=== PATIENT | male | born 1960 | race Caucasian/White ===

== ENCOUNTER 2018-03-17 01:29 | Emergency (ER) | payer BC ==
[~2018-03-17] VITALS: Ht 175.3 cm; Wt 86.2 kg
[2018-03-17 01:38] VITALS: BP_SYST 161
[2018-03-17] MEDS ORDERED: NACL 0.9% 1,000 ML IV ONE (01:57)
[2018-03-17] MEDS ORDERED: ONDANSETRON HCL 4 MG/2 ML VIAL IVP ONE (02:00)
[2018-03-17] MEDS ORDERED: MORPHINE 2 MG/ML INJ. SYRINGE IM ONE (02:00)
[2018-03-17 02:33] LABS: BASOPHILS % (AUTO) 0.8 % (0.0-2.0); EOSINOPHILS # (AUTO) 0.2 K/uL (0.0-0.4); EOSINOPHILS % (AUTO) 3.4 % (0.0-4.0); HEMATOCRIT 43.7 % (36-54); HEMOGLOBIN 14.7 g/dL (14.0-18.0); LYMPHOCYTES # (AUTO) 1.8 K/uL (1.0-5.5); MEAN CORPUSCULAR HEMOGLOBIN 31 pg (27-31); MEAN CORPUSCULAR HGB CONC 34 % (32-36); MEAN CORPUSCULAR VOLUME 91 fL (79.0-98.0); MONOCYTES # (AUTO) 0.5 K/uL (0.0-1.0); NEUTROPHILS # (AUTO) 3.7 K/uL (1.8-7.7); NEUTROPHILS % (AUTO) 58.8 % (40.0-70.0); PLATELET COUNT (AUTO) 219 K/uL (130-430); RED BLOOD CELL COUNT(AUTO) 4.81 MIL/uL (4.2-6.2); RED CELL DISTRIBUTION WIDTH 12.2 % (9.0-15.0); WHITE BLOOD COUNT (AUTO) 6.2 K/uL (4.8-10.8)
[2018-03-17 02:41] LABS: CALCIUM 8.9 mg/dL (8.4-11.0); CREATININE 1.06 mg/dL (0.55-1.30); POTASSIUM 3.5 mmol/L (3.5-5.1)
[2018-03-17 02:46] LABS: PROTHROMBIN TIME 9.9 SECS (9.5-12.5)
[2018-03-17 02:47] LABS: ALBUMIN 4.1 g/dL (3.4-4.8); TOTAL BILIRUBIN 0.9 mg/dL (0.0-1.0)
[2018-03-17 03:48] LABS: BILIRUBIN,URINE NEGATIVE (NEGATIVE); BLOOD, URINE NEGATIVE (NEGATIVE); CLARITY/URINE CLEAR (CLEAR); COLOR,URINE YELLOW (YELLOW); GLUCOSE,URINE NEGATIVE (NEGATIVE); KETONES,URINE NEGATIVE (NEGATIVE); LEUKOCYTE ESTERASE ,URINE TRACE (NEGATIVE); NITRITE, URINE NEGATIVE (NEGATIVE); PROTEIN URINE NEGATIVE (NEGATIVE); UROBILINOGEN,URINE 0.2 (0.2-1.0)
[2018-03-17 03:57] LABS: BACTERIA,URINE FEW /HPF (None Seen); RBC,URINE 0-3 /HPF (0-3)
[2018-03-17 04:55] VITALS: BP_SYST 145
== END 2018-03-17 04:55 | disposition home or self-care (01) ==
LOC: SED 01:29
DX: K80.20 Calculus of gallbladder without cholecystitis without obstruction (principal); K21.9 Gastro-esophageal reflux disease without esophagitis; Z88.0 Allergy status to penicillin
CPT/HCPCS: 36415; 71045; 74176; 76700; 80053; 81000; 82550; 83690; 83880; 84484; 85025; 85610; 87086; 93005; 96374; 96375; 99285; J2270; J2405; J7030

== ENCOUNTER 2020-11-22 22:58 | Inpatient (IN) | payer BC, SELFPAY ==
[~2020-11-22] VITALS: Ht 175.3 cm; Wt 89.5 kg
[2020-11-22 23:00] VITALS: BP_SYST 156
--- NOTE | 2020-11-22 23:00 | NUR ---
PT TO BED 7 FOR EVALUATION
--- NOTE | 2020-11-22 23:05 | NUR ---
PT COMPLAINING OF WORSENING RIGHT-SIDED ABDOMINAL PAIN TODAY. PT REPORTS THAT HE HAD GALLSTONES ONE WEEK AGO AND FEELS LIKE HE FLARED UP AGAIN TODAY. PT REPORTS CURRENT PAIN LEVEL OF 10/10.
[2020-11-22] MEDS ORDERED: NACL 0.9% 1,000 ML IV ONE (23:15)
--- NOTE | 2020-11-22 23:20 | NUR ---
DR. ISLAS AT BEDSIDE TO ASSESS.
[2020-11-22] MEDS ORDERED: MORPHINE 4 MG INJ. 4 MG/ML VIAL IVP ONE (23:30)
--- NOTE | 2020-11-22 23:50 | NUR ---
IV ESTABLISHED 20G IV HL INTO LEFT FA AND URINE SPECIMEN SENT TO LAB.
--- NOTE | 2020-11-22 23:50 | NUR ---
BLOOD DRAWN PER LAB AND SENT FOR ANALYSIS.
[2020-11-22 23:58] LABS: BASOPHILS # (AUTO) 0.1 K/uL (0.0-0.2); BASOPHILS % (AUTO) 0.5 % (0.0-2.0); EOSINOPHILS # (AUTO) 0.1 K/uL (0.0-0.4); EOSINOPHILS % (AUTO) 1.4 % (0.0-4.0); HEMATOCRIT 46.4 % (36-54); HEMOGLOBIN 15.8 g/dL (14.0-18.0); LYMPHOCYTES # (AUTO) 1.1 K/uL (1.0-5.5); LYMPHOCYTES % (AUTO) 11.1 % (20.5-51.5); MEAN CORPUSCULAR HEMOGLOBIN 31 pg (27-31); MEAN CORPUSCULAR HGB CONC 34 % (32-36); MEAN CORPUSCULAR VOLUME 89 fL (79.0-98.0); MONOCYTES # (AUTO) 0.4 K/uL (0.0-1.0); MONOCYTES % (AUTO) 4.2 % (1.7-9.3); NEUTROPHILS # (AUTO) 8.5 K/uL (1.8-7.7); NEUTROPHILS % (AUTO) 82.8 % (40.0-70.0); PLATELET COUNT (AUTO) 217 K/uL (130-430); RED BLOOD CELL COUNT(AUTO) 5.19 MIL/uL (4.2-6.2); WHITE BLOOD COUNT (AUTO) 10.2 K/uL (4.8-10.8)
--- NOTE | 2020-11-23 | NUR ---
Received report from Vanesa SANTIAGO. Patient resting quietly. No acute distress noted. Vital signs within normal range.
[2020-11-23 00:12] LABS: PROTHROMBIN TIME 10.4 SECS (9.5-12.5)
[2020-11-23 00:13] LABS: BILIRUBIN,URINE NEGATIVE (NEGATIVE); BLOOD, URINE NEGATIVE (NEGATIVE); CLARITY/URINE CLEAR (CLEAR); COLOR,URINE YELLOW (YELLOW); GLUCOSE,URINE NEGATIVE (NEGATIVE); KETONES,URINE NEGATIVE (NEGATIVE); LEUKOCYTE ESTERASE ,URINE NEGATIVE (NEGATIVE); NITRITE, URINE NEGATIVE (NEGATIVE); PH,URINE 5.5 (5.0-8.0); PROTEIN URINE NEGATIVE (NEGATIVE); UROBILINOGEN,URINE 0.2 (0.2-1.0)
[2020-11-23] MEDS ORDERED: ONDANSETRON HCL 4 MG/2 ML VIAL IVP ONE ×2 (00:15→15:00)
[2020-11-23 00:16] LABS: ALBUMIN 4.6 g/dL (3.4-4.8); CALCIUM 9.4 mg/dL (8.4-11.0); CREATININE 1.19 mg/dL (0.55-1.30); POTASSIUM 4.3 mmol/L (3.5-5.1)
[2020-11-23] MEDS ORDERED: KETOROLAC TROMETHAMINE 30 MG VIAL IM PRN (01:00)
[2020-11-23] MEDS ORDERED: KETOROLAC TROMETHAMINE 30 MG VIAL IVP PRN (01:15)
--- NOTE | 2020-11-23 01:15 | NUR ---
Patient will be admitted to care of DR. GLASS. Admitted to MED SURG unit. Belongings list completed. Complete and up to date summary report printed. SBAR report to be given at bedside with opportunity for questions.
[2020-11-23] MEDS: D5/0.45 NS 1,000 ML IV SCH ×2 (01:16→11:44)
--- NOTE | 2020-11-23 01:16 | NUR ---
Patient's code status is FULL CODE paperwork completed and placed in chart.
[2020-11-23] MEDS ORDERED: MULT-1117 PO (01:38)
[2020-11-23] MEDS ORDERED: FAMO40TA71 PO (01:38)
--- NOTE | 2020-11-23 01:38 | NUR ---
Medication reconciliation completed with information provided by PATIENT. Any prior medication reconciliation on file was reviewed and corrected.
--- NOTE | 2020-11-23 03:34 | NUR ---
pt VADIM to radiology
--- NOTE | 2020-11-23 04:00 | NUR ---
Irma ortega in [facility] - 11/23/20 at [id number] by [email or web address] Pt back from radiology
--- NOTE | 2020-11-23 04:15 | NUR ---
Irma ortega in [facility] - 11/23/20 at 0527 by [email or web address] Transfer to [facility] IV present no sign or symptom of infiltration.
--- NOTE | 2020-11-23 05:42 | NUR ---
Transfer to [facility]. IV present no sign or symptom of infiltration.
--- NOTE | 2020-11-23 05:42 | NUR ---
pt back from radiology
--- NOTE | 2020-11-23 05:50 | NUR ---
ADMISSION: The patient, JEWELL KINGSLEY, 60 y/o, M admitted by JOY GLASS MD, was given written information regarding hospital policies, unit procedures and contact persons. Valuables were checked and documented.
[2020-11-23 05:55] VITALS: BP_SYST 137
--- NOTE | 2020-11-23 07:15 | NUR ---
OPENING NOTES: RECEIVED REPORT FROM SPLICER HELPER NURSE. PATIENT IS AWAKE, ALERT LAYING DOWN IN BED. TOLERATED OXYGEN ON ROOM AIR WITH NO DISTRESS NOTED. DENIES ANY PAIN AT THE MOMENT. IV LINE PATENT AND INTACT WITH NO INFILTRATION NOTED. PATIENT IN STABLE CONDITION. SAFETY, FALL, AND ASPIRATION PRECAUTIONS ARE IN PLACE. BED LOCKED IN LOWEST POSITION AND CALL LIGHT IN REACH. WILL CONTINUE TO MONITOR PATIENT FOR ANY CHANGES.
[2020-11-23 08:00] VITALS: BP_SYST 122
[2020-11-23] MEDS ORDERED: NALOXONE HCL 0.4 MG/ML AMP (NARCAN) IVP PRN ×3 (09:15→17:30)
[2020-11-23] MEDS ORDERED: ONDANSETRON HCL 4 MG/2 ML VIAL IVP PRN ×3 (09:15→17:30)
[2020-11-23] MEDS ORDERED: MORPHINE 2 MG/ML INJ. SYRINGE IVP PRN (09:15)
[2020-11-23] MEDS ORDERED: NACL 0.9% 1,000 ML IV SCH ×2 (09:15→17:30)
[2020-11-23] MEDS ORDERED: ACETAMINOPHEN 325 MG TABLET PO PRN ×2 (09:15→17:30)
[2020-11-23] MEDS ORDERED: metroNIDAZOLE 500 mg/NS 100 ML IV ONE (09:30)
[2020-11-23] MEDS ORDERED: FAMOTIDINE PF 20 MG/2 ML VIAL IVP ONE (09:30)
[2020-11-23] MEDS ORDERED: THIAMINE HCL 100 MG TABLET PO ONE (11:00)
[2020-11-23] MEDS ORDERED: FOLIC ACID 1 MG TABLET PO ONE (11:00)
[2020-11-23] MEDS ORDERED: LORazepam 2 MG/ML VIAL IVP PRN (11:00)
[2020-11-23 12:00] VITALS: BP_SYST 133
[2020-11-23] MEDS: LEVOFLOXACIN IN DEXTROSE 5 % 100 ML IV SCH (12:53)
[2020-11-23] MEDS ORDERED: BUPIVACAINE /EPINEPHRINE/PF 0.25% 30 ML VIAL INJ ONE (15:00)
[2020-11-23] MEDS ORDERED: SEVOFLURANE 15 MIN GAS INH ONE (15:00)
[2020-11-23] MEDS ORDERED: PROPOFOL 200MG/ 20ML VIAL (DIPRIVAN) IV ONE (15:00)
[2020-11-23] MEDS ORDERED: GLYCOPYRROLATE 0.2 MG/ML VIAL IJ ONE (15:00)
[2020-11-23] MEDS ORDERED: MIDAZOLAM HCL 5 MG/5 ML VIAL IVP ONE (15:00)
[2020-11-23] MEDS ORDERED: IOHEXOL 300 mgI/mL, 50 mL INFUS..BTL IV ONE (15:00)
[2020-11-23] MEDS ORDERED: NEOSTIGMINE METHYLSULFATE 1 MG/ML, 10 ML VIAL IVP ONE (15:00)
[2020-11-23] MEDS ORDERED: LR 1,000 ML IV.SOLN IV ONE (15:00)
[2020-11-23] MEDS ORDERED: ROCURONIUM BROMIDE 10 MG/ML (ZEMURON) IV ONE (15:00)
[2020-11-23] MEDS ORDERED: NS IRRIG SOLN 1000 ML IR ONE (15:00)
[2020-11-23] MEDS ORDERED: NS 1000 ML IV.SOLN IV ONE (15:00)
[2020-11-23] MEDS ORDERED: fentaNYL CITRATE 250 MCG/5 ML AMP IV ONE (15:00)
--- NOTE | 2020-11-23 15:00 | NUR ---
PATIENT WHEELED TO OR FOR LAPAROSCOPIC CHOLECYSTECTOMY SURGERY. CONSENT SIGNED. FAMILY (SON) MADE AWARE. AWAITING TO COME BACK FROM OR.
[2020-11-23] MEDS ORDERED: fentaNYL CITRATE/PF 100 MCG/2 ML AMP IVP PRN ×2 (16:30)
[2020-11-23] MEDS ORDERED: fentaNYL CITRATE/PF 100 MCG/2 ML AMP ONE (17:08)
[2020-11-23] MEDS ORDERED: HYDROcodone/ACETAMIN 5-325 MG TAB (NORCO/ VICODIN) PO PRN (17:30)
--- NOTE | 2020-11-23 17:40 | NUR ---
PATIENT BACK TO HIS ROOM AFTER LAPAROSCOPIC CHOLECYSTECTOMY. PATIENT IN STABLE CONDITION. WILL CONTINUE TO MONITOR PATIENT.
--- NOTE | 2020-11-23 18:45 | NUR ---
CLOSING NOTES: PATIENT IS AWAKE, ALERT LAYING DOWN IN BED. TOLERATED OXYGEN ON ROOM AIR WITH NO DISTRESS NOTED. DENIES ANY PAIN AT THE MOMENT. IV LINE PATENT AND INTACT WITH NO INFILTRATION NOTED. PATIENT IN STABLE CONDITION. SAFETY, FALL, AND ASPIRATION PRECAUTIONS REMAINED IN PLACE. BED LOCKED IN LOWEST POSITION AND CALL LIGHT IN REACH. WILL ENDORSE PATIENT CARE TO ONCOMING CONVENTION PLANNER NURSE.
--- NOTE | 2020-11-23 19:30 | NUR ---
OPENING NOTES: Received report from dayshift nurse. Patient is resting in bed alert and oriented on room air. He has IV on LAC with dry and intact dressing. Patient had surgery today and has four incisions on abdomen covered with initial surgical dressings, dry and intact. Ensured all safety precautions. Bed is locked and in the lowest position with call light within reach.
[2020-11-23 20:00] VITALS: BP_SYST 131
[2020-11-23 21:00] VITALS: BP_SYST 132
[2020-11-23] MEDS: HYDROmorphone 1 MG/ML INJ. CARTRIDGE IVP PRN (21:06)
[2020-11-24] VITALS: BP_SYST 132
[2020-11-24] MEDS: D5/0.45 NS 1,000 ML IV SCH ×2 (00:14→06:18)
[2020-11-24] MEDS: metroNIDAZOLE 500 mg/NS 100 ML IV SCH ×2 (00:14→06:19)
[2020-11-24] MEDS: HYDROmorphone 1 MG/ML INJ. CARTRIDGE IVP PRN ×2 (00:17→05:06)
[2020-11-24 06:55] LABS: BASOPHILS % (AUTO) 0.4 % (0.0-2.0); EOSINOPHILS # (AUTO) 0.2 K/uL (0.0-0.4); EOSINOPHILS % (AUTO) 2.6 % (0.0-4.0); HEMATOCRIT 39.2 % (36-54); HEMOGLOBIN 13.4 g/dL (14.0-18.0); LYMPHOCYTES # (AUTO) 1.8 K/uL (1.0-5.5); LYMPHOCYTES % (AUTO) 21.1 % (20.5-51.5); MEAN CORPUSCULAR HEMOGLOBIN 31 pg (27-31); MEAN CORPUSCULAR HGB CONC 34 % (32-36); MEAN CORPUSCULAR VOLUME 90 fL (79.0-98.0); MONOCYTES # (AUTO) 0.7 K/uL (0.0-1.0); MONOCYTES % (AUTO) 8.6 % (1.7-9.3); NEUTROPHILS # (AUTO) 5.6 K/uL (1.8-7.7); NEUTROPHILS % (AUTO) 67.3 % (40.0-70.0); PLATELET COUNT (AUTO) 181 K/uL (130-430); RED BLOOD CELL COUNT(AUTO) 4.36 MIL/uL (4.2-6.2); WHITE BLOOD COUNT (AUTO) 8.4 K/uL (4.8-10.8)
[2020-11-24 07:09] LABS: ALBUMIN 3.1 g/dL (3.4-4.8); CALCIUM 7.9 mg/dL (8.4-11.0); CREATININE 1.02 mg/dL (0.55-1.30); TOTAL BILIRUBIN 1.6 mg/dL (0.0-1.0)
--- NOTE | 2020-11-24 07:15 | NUR ---
OPENING NOTES: RECEIVED REPORT FROM GRANITE [employer]IP [employer]RAZZO FINISHER NURSE. PATIENT IS AWAKE, ALERT LAYING DOWN IN BED. TOLERATED OXYGEN ON ROOM AIR WITH NO DISTRESS NOTED. DENIES ANY PAIN AT THE MOMENT. IV LINE PATENT AND INTACT WITH NO INFILTRATION NOTED. PATIENT IN STABLE CONDITION. SAFETY, FALL, AND ASPIRATION PRECAUTIONS ARE IN PLACE. BED LOCKED IN LOWEST POSITION AND CALL LIGHT IN REACH. WILL CONTINUE TO MONITOR PATIENT FOR ANY CHANGES.
--- NOTE | 2020-11-24 07:33 | NUR ---
Closing Note: Patient is in stable condition, report given to dayshift nurse.
[2020-11-24 08:00] VITALS: BP_SYST 135
[2020-11-24] MEDS: LEVOFLOXACIN IN DEXTROSE 5 % 100 ML IV SCH (08:48)
[2020-11-24] MEDS ORDERED: FOLIC ACID 1 MG TABLET PO SCH (09:00)
[2020-11-24] MEDS ORDERED: THIAMINE HCL 100 MG TABLET PO SCH (09:00)
[2020-11-24] MEDS ORDERED: FAMOTIDINE PF 20 MG/2 ML VIAL IVP SCH (09:00)
--- NOTE | 2020-11-24 10:45 | NUR ---
FAXED HOME HEALTH ORDER TO [facility]/HCP CM MS ROSI SEVILLA.
[2020-11-24 12:39] VITALS: BP_SYST 135; BP_SYST 141
== END 2020-11-24 13:05 | disposition home health service (06) | DRG 419 ==
LOC: SED 22:58 → SMU 11-23 00:47
PROVIDERS: ADMIT Internal Medicine Hospice and Palliative Medicine; ATTEND Internal Medicine Hospice and Palliative Medicine
PROC: 0FT44ZZ Resection of Gallbladder, Percutaneous Endoscopic Approach (ICD-10-PCS; principal; 2020-11-23 15:00)
DX: K80.01 Calculus of gallbladder with acute cholecystitis with obstruction (principal); K21.9 Gastro-esophageal reflux disease without esophagitis; F10.10 Alcohol abuse, uncomplicated; Z20.822 Contact with and (suspected) exposure to COVID-19; Z82.49 Family history of ischemic heart disease and other diseases of the circulatory system; Z79.899 Other long term (current) drug therapy; Z88.8 Allergy status to other drugs, medicaments and biological substances
CPT/HCPCS: 36415; 74300; 76376; 76700-TC; 78226; 80053; 81003; 82150; 83690; 85025; 85610-TC; 88304; 94010; 96361; 96374; 96375; 99285; A9537; C1727; J1170; J1885; J1956; J2250; J2270; J2405; J2704; J2710; J3010; J3490; J7030; J7120; Q9967